=== PATIENT | male | born 1955 | race Caucasian/White ===

== ENCOUNTER 2021-03-29 20:30 | Inpatient (IN) ==
[2021-03-29] MEDS ORDERED: AZITHROMYCIN 500 MG in DEXTROSE 5% IN WATER 250 ML IV ONE (20:44)
[2021-03-29] MEDS ORDERED: cefTRIAXone 1 GM in DEXTROSE 5% IN WATER 50 ML IV SCH (20:45)
--- NOTE | 2021-03-29 20:46 | Emergency Department Note ---
HPI General Chief complaint: Shortness of Breath/Dyspnea Stated complaint: COVID+, SOB Time Seen by Provider: 03/29/21 20:33 Source: other Mode of arrival: ambulatory Limitations: no limitations History of Present Illness HPI Narrative: Narrative: Patient is a 65-year-old male presents with shortness of breath. The patient states that within the last month he was diagnosed with COVID. He states he is unvaccinated. Reviewing his chest x-ray interpretation per the radiologist is consistent with pneumonia. Patient denies any hemoptysis or lower extremity swelling. Related Data Home Medications Medication Instructions Recorded Confirmed No Known Home Meds 03/29/21 03/29/21 Allergies Allergy/AdvReac Type Severity Reaction Status Date / Time No Known Drug Allergies Allergy Unverified 03/24/21 10:00 Review of Systems ROS ROS Narrative: Narrative: All systems ED: reviewed and negative except as stated. [facility] Narrative Patient History Narrative: Narrative: Medical/Surgical/Family History All Active Problems (Updated 03/30/21 @ 01:25 by Justin Wadsworth DO) COVID-19 (Acute) Community acquired pneumonia (Acute) Acute respiratory distress syndrome (ARDS) (Acute) Social History Smoking Status: Never smoker Exam Narrative Narrative: Narrative: General Limitations: no limitations General appearance: Present alert Head Head: Present atraumatic and normocephalic Eye Eye: Present normal appearance, PERRL and EOMI ENT ENT: Present normal exam, normal oropharynx and mucous membranes moist Neck Neck: Present normal inspection, full ROM and trachea midline Chest Chest: Present normal inspection and symmetric chest wall rise Respiratory Respiratory: Present other (Mild tachypnea, mild use of accessory muscles, trachea midline, diffuse adventitious lung sounds in bilateral lung fernandez.) Cardiovascular Cardiovascular: Present normal rhythm and tachycardia Adbominal Abdominal: Present soft and normal bowel sounds; Absent tenderness, guarding, rebound or organomegaly Extremities Extremities: Present normal inspection and full ROM; Absent tenderness Back Back: Present normal inspection and full ROM; Absent tenderness Neurological Neurological: Present alert, oriented X3, CN II-XII intact, normal gait, motor sensory deficit and reflexes normal Psychiatric Psychiatric: Present normal affect Skin Skin: Present warm (WNL); Absent rash Course Course Course Narrative: History and exam are concerning for COVID-pneumonia as well as bacterial pneumonia. EKG shows no STEMI., Rate 97, KY interval 152, QRS 132, QTc 480, P waves are upright in leads I and II and 3 inverted in aVR no KY depression elevation only to aVR respectively, left axis deviation, right bundle branch block pattern, poor R wave progression, no acute see acute ST segment elevation depression, no shortened interval no biphasic T waves, no STEMI, nonspecific EKG. Chest x-ray is consistent with advanced bilateral pulmonary fluffy infiltrates consistent with ARDS. I consulted the hospitalist, dr. kinney for admission who recommended to transfer this patient to higher level of care. We have attempted to transfer this patient to multiple hospitals including [facility] however they are at max capacity. The patient will continue to board in the emergency department currently being treated with BiPAP. This patient will be signed out at shift change to Dr. Nii Cox. Vital Signs Vital signs: Vital Signs Temperature 99.8 F H 03/29/21 20:40 Pulse Rate 100 H 03/29/21 20:40 Respiratory Rate 24 H 03/29/21 20:40 Blood Pressure 152/109 03/29/21 20:40 Pulse Oximetry (%) 52 L 03/29/21 20:40 Temperature 99.8 F H 03/29/21 20:40 Pulse Rate 74 03/30/21 04:50 Respiratory Rate 26 H 03/30/21 04:50 Blood Pressure 135/81 03/30/21 01:02 Pulse Oximetry (%) 97 03/30/21 04:50 MDM MDM Narrative Medical decision making narrative: Narrative: Lab Data Result diagrams: 03/29/21 20:43 Labs: Lab Results 03/29/21 03/29/21 03/29/21 Range/Units 20:43 20:43 20:43 WBC 9.7 (4.5-11.0) K/mcL RBC 3.94 L (4.63-6.08) M/mcL Hgb 12.5 L (13.7-17.5) g/dL Hct 36.1 L (40.1-51.0) % POC Hct (41-55) % MCV 91.6 (80.0-100.0) fL MCH 31.7 (26.0-34.0) pg MCHC 34.6 (31.0-36.0) g/dL RDW 12.0 (11.5-14.5) % Plt Count 447 H (140-440) K/mcL MPV 9.1 (7.4-10.4) fL Neut % (Auto) 77.0 (38.0-78.0) % Lymph % (Auto) 10.4 L (15.5-49.0) % Hunt % (Auto) 11.4 (1.0-12.0) % Eos % (Auto) 1.0 (0.0-7.0) % Baso % (Auto) 0.2 (0.0-2.0) % Lymph # (Auto) 1.01 L (1.50-4.80) K/mcL Hunt # (Auto) 1.11 H (0.10-0.90) K/mcL Eos # (Auto) 0.10 (0.00-0.70) K/mcL Baso # (Auto) 0.02 (0.00-0.30) K/mcL Absolute Neutrophils 7.49 (1.80-8.00) K/mcL PT 16.0 H (11.9-14.5) sec INR 1.2 H (0.9-1.1) VBG Lactic Acid 1.6 (0.5-2.0) mmol/L POC Sodium (133-145) mEq/L POC Potassium (3.3-5.1) mEql/L POC Chloride (96-108) mEq/L POC Total CO2 (22-30) mmol/L POC BUN (6-20) mg/dL POC Creatinine (0.6-1.2) mg/dL POC Glucose (70-105) mg/dL POC WB Ioniz Calcium (1.16-1.32) mmEq/L Magnesium (1.6-2.5) mg/dL Total Bilirubin (0.1-1.0) mg/dL Direct Bilirubin (<0.3) mg/dL AST (<40) U/L ALT (<40) U/L Alkaline Phosphatase (39-117) U/L Total Creatine Kinase (24-195) U/L Troponin T (<0.03) ng/mL NT-Pro-B Natriuret Pep (<125.0) pg/mL Total Protein (5.9-8.4) gm/dL Albumin (3.2-5.2) gm/dL Globulin (2.2-3.7) gm/dL Lipase (7-60) U/L Procalcitonin (<0.10) ng/mL Ethyl Alcohol (<0.010) gm/dL 03/29/21 03/29/21 03/29/21 Range/Units 20:43 20:43 20:43 WBC (4.5-11.0) K/mcL RBC (4.63-6.08) M/mcL Hgb (13.7-17.5) g/dL Hct (40.1-51.0) % POC Hct 36 L (41-55) % MCV (80.0-100.0) fL MCH (26.0-34.0) pg MCHC (31.0-36.0) g/dL RDW (11.5-14.5) % Plt Count (140-440) K/mcL MPV (7.4-10.4) fL Neut % (Auto) (38.0-78.0) % Lymph % (Auto) (15.5-49.0) % Hunt % (Auto) (1.0-12.0) % Eos % (Auto) (0.0-7.0) % Baso % (Auto) (0.0-2.0) % Lymph # (Auto) (1.50-4.80) K/mcL Hunt # (Auto) (0.10-0.90) K/mcL Eos # (Auto) (0.00-0.70) K/mcL Baso # (Auto) (0.00-0.30) K/mcL Absolute Neutrophils (1.80-8.00) K/mcL PT (11.9-14.5) sec INR (0.9-1.1) VBG Lactic Acid (0.5-2.0) mmol/L POC Sodium 132 L (133-145) mEq/L POC Potassium 3.3 (3.3-5.1) mEql/L POC Chloride 97 (96-108) mEq/L POC Total CO2 24 (22-30) mmol/L POC BUN 9 (6-20) mg/dL POC Creatinine 0.6 (0.6-1.2) mg/dL POC Glucose 135 H (70-105) mg/dL POC WB Ioniz Calcium 1.05 L (1.16-1.32) mmEq/L Magnesium 2.6 H (1.6-2.5) mg/dL Total Bilirubin 0.9 (0.1-1.0) mg/dL Direct Bilirubin 0.3 H (<0.3) mg/dL AST 72 H (<40) U/L ALT 131 H (<40) U/L Alkaline Phosphatase 126 H (39-117) U/L Total Creatine Kinase 39 (24-195) U/L Troponin T < 0.01 (<0.03) ng/mL NT-Pro-B Natriuret Pep 98.2 (<125.0) pg/mL Total Protein 7.6 (5.9-8.4) gm/dL Albumin 3.0 L (3.2-5.2) gm/dL Globulin 4.6 H (2.2-3.7) gm/dL Lipase 15 (7-60) U/L Procalcitonin 0.14 H (<0.10) ng/mL Ethyl Alcohol (<0.010) gm/dL 03/29/21 Range/Units 20:43 WBC (4.5-11.0) K/mcL RBC (4.63-6.08) M/mcL Hgb (13.7-17.5) g/dL Hct (40.1-51.0) % POC Hct (41-55) % MCV (80.0-100.0) fL MCH (26.0-34.0) pg MCHC (31.0-36.0) g/dL RDW (11.5-14.5) % Plt Count (140-440) K/mcL MPV (7.4-10.4) fL Neut % (Auto) (38.0-78.0) % Lymph % (Auto) (15.5-49.0) % Hunt % (Auto) (1.0-12.0) % Eos % (Auto) (0.0-7.0) % Baso % (Auto) (0.0-2.0) % Lymph # (Auto) (1.50-4.80) K/mcL Hunt # (Auto) (0.10-0.90) K/mcL Eos # (Auto) (0.00-0.70) K/mcL Baso # (Auto) (0.00-0.30) K/mcL Absolute Neutrophils (1.80-8.00) K/mcL PT (11.9-14.5) sec INR (0.9-1.1) VBG Lactic Acid (0.5-2.0) mmol/L POC Sodium (133-145) mEq/L POC Potassium (3.3-5.1) mEql/L POC Chloride (96-108) mEq/L POC Total CO2 (22-30) mmol/L POC BUN (6-20) mg/dL POC Creatinine (0.6-1.2) mg/dL POC Glucose (70-105) mg/dL POC WB Ioniz Calcium (1.16-1.32) mmEq/L Magnesium (1.6-2.5) mg/dL Total Bilirubin (0.1-1.0) mg/dL Direct Bilirubin (<0.3) mg/dL AST (<40) U/L ALT (<40) U/L Alkaline Phosphatase (39-117) U/L Total Creatine Kinase (24-195) U/L Troponin T (<0.03) ng/mL NT-Pro-B Natriuret Pep (<125.0) pg/mL Total Protein (5.9-8.4) gm/dL Albumin (3.2-5.2) gm/dL Globulin (2.2-3.7) gm/dL Lipase (7-60) U/L Procalcitonin (<0.10) ng/mL Ethyl Alcohol < 0.010 (<0.010) gm/dL ED POC Tests ED POC Tests: TONE - SARS Antigen Negative Discharge Plan Patient/Caregiver Discharge Instructions Pt seen by CROSS COUNTRY TRUCK DRIVER/PA only: No Clinical Impression: COVID-19, Community acquired pneumonia, Acute respiratory distress syndrome (ARDS) Patient Disposition: Still a Patient Condition: Serious Follow up with: Taylor Aquino MD [Primary Care Provider] - Prescriptions: No Action No Known Home Meds 0RF
[2021-03-29 21:12] LABS: POC Blood Urea Nitrogen 9 mg/dL (6-20); POC CO2 24 mmol/L (22-30); POC Calcium, Ionized 1.05 mmEq/L (1.16-1.32); POC Chloride 97 mEq/L (96-108); POC Creatinine 0.6 mg/dL (0.6-1.2); POC Glucose, Random 135 mg/dL (70-105); POC Hematocrit 36 % (41-55); POC Potassium 3.3 mEql/L (3.3-5.1); POC Sodium 132 mEq/L (133-145)
[2021-03-29] MEDS ORDERED: LORazepam 2 MG/ML VIAL IV ONE (21:24)
[2021-03-29 21:45] LABS: INR 1.2 (0.9-1.1)
[2021-03-29 21:47] LABS: Basophils # (Auto) 0.02 K/mcL (0.00-0.30); Basophils % (Auto) 0.2 % (0.0-2.0); Hematocrit 36.1 % (40.1-51.0); Hemoglobin 12.5 g/dL (13.7-17.5); Lymphocytes # (Auto) 1.01 K/mcL (1.50-4.80); Lymphocytes % (Auto) 10.4 % (15.5-49.0); Mean Cell Volume 91.6 fL (80.0-100.0); Mean Corpuscular HGB Conc 34.6 g/dL (31.0-36.0); Mean Platelet Volume 9.1 fL (7.4-10.4); Monocytes # (Auto) 1.11 K/mcL (0.10-0.90); Monocytes % (Auto) 11.4 % (1.0-12.0); Platelet Count 447 K/mcL (140-440); RBC 3.94 M/mcL (4.63-6.08); WBC 9.7 K/mcL (4.5-11.0)
[2021-03-29 22:03] LABS: proBNP 98.2 pg/mL (<125.0)
[2021-03-29 22:06] LABS: ALT/SGPT 131 U/L (<40); AST/SGOT 72 U/L (<40); Alkaline Phosphatase 126 U/L (39-117); Bilirubin,Direct 0.3 mg/dL (<0.3); Bilirubin,Total 0.9 mg/dL (0.1-1.0); Creatine Kinase 39 U/L (24-195); Globulin 4.6 gm/dL (2.2-3.7)
[2021-03-29 22:17] LABS: Alcohol, Blood < 10.0 mg/dL; Alcohol,Blood < 0.010 gm/dL (<0.010)
--- NOTE | 2021-03-30 04:06 | XRay Report ---
CLINICAL INFORMATION: Dyspnea COMPARISON: 03/24/2021 TECHNIQUE: Portable FINDINGS: The heart size, mediastinum and pulmonary vessels are unremarkable. Diffuse bilateral infiltrates worsening considerably since the exam five days ago.. There are no effusions. The bones and soft tissues are within normal limits. IMPRESSION: Diffuse bilateral alveolar infiltrates throughout both lungs-worsening considerably since the exam less than one week ago Interpreted and Authenticated by: Raul Ro 03/30/21
--- NOTE | 2021-03-30 07:57 | Emergency Department Note ---
Course Course Course Narrative: I assumed care from Dr. Espinal at the change of shift. I evaluated the patient in person at 7:55 AM. He is sitting up in bed on high flow oxygen via nasal cannula in no acute distress. He is able to carry conversation but does have slightly increased work of breathing after prolonged conversation. He says he feels much better this morning. We will continue to search for an appropriate inpatient bed. Vital Signs Vital signs: Vital Signs Temperature 99.8 F H 03/29/21 20:40 Pulse Rate 100 H 03/29/21 20:40 Respiratory Rate 24 H 03/29/21 20:40 Blood Pressure 152/109 03/29/21 20:40 Pulse Oximetry (%) 52 L 03/29/21 20:40 Temperature 99.8 F H 03/29/21 20:40 Pulse Rate 97 H 03/30/21 16:53 Respiratory Rate 27 H 03/30/21 16:53 Blood Pressure 123/83 03/30/21 16:53 Pulse Oximetry (%) 98 03/30/21 16:53 [facility] MDM Narrative Medical decision making narrative: After several hours of searching for an appropriate bed for transfer, a bed at our facility became available. I discussed the patient's history examination and diagnostic findings with Dr. Rudd. He accepts admission and will provide care in the hospital. I updated the patient who is quite happy that he does not need to be transferred at this time and is agreeable with the plan for admission. Lab Data Result diagrams: 03/29/21 20:43 Labs: Lab Results 03/29/21 03/29/21 03/29/21 Range/Units 20:43 20:43 20:43 WBC 9.7 (4.5-11.0) K/mcL RBC 3.94 L (4.63-6.08) M/mcL Hgb 12.5 L (13.7-17.5) g/dL Hct 36.1 L (40.1-51.0) % POC Hct (41-55) % MCV 91.6 (80.0-100.0) fL MCH 31.7 (26.0-34.0) pg MCHC 34.6 (31.0-36.0) g/dL RDW 12.0 (11.5-14.5) % Plt Count 447 H (140-440) K/mcL MPV 9.1 (7.4-10.4) fL Neut % (Auto) 77.0 (38.0-78.0) % Lymph % (Auto) 10.4 L (15.5-49.0) % [place]ades % (Auto) 11.4 (1.0-12.0) % Eos % (Auto) 1.0 (0.0-7.0) % Baso % (Auto) 0.2 (0.0-2.0) % Lymph # (Auto) 1.01 L (1.50-4.80) K/mcL [place] # (Auto) 1.11 H (0.10-0.90) K/mcL Eos # (Auto) 0.10 (0.00-0.70) K/mcL Baso # (Auto) 0.02 (0.00-0.30) K/mcL Absolute Neutrophils 7.49 (1.80-8.00) K/mcL PT 16.0 H (11.9-14.5) sec INR 1.2 H (0.9-1.1) VBG Lactic Acid 1.6 (0.5-2.0) mmol/L POC Sodium (133-145) mEq/L POC Potassium (3.3-5.1) mEql/L POC Chloride (96-108) mEq/L POC Total CO2 (22-30) mmol/L POC BUN (6-20) mg/dL POC Creatinine (0.6-1.2) mg/dL POC Glucose (70-105) mg/dL POC WB Ioniz Calcium (1.16-1.32) mmEq/L Magnesium (1.6-2.5) mg/dL Total Bilirubin (0.1-1.0) mg/dL Direct Bilirubin (<0.3) mg/dL AST (<40) U/L ALT (<40) U/L Alkaline Phosphatase (39-117) U/L Total Creatine Kinase (24-195) U/L Troponin T (<0.03) ng/mL NT-Pro-B Natriuret Pep (<125.0) pg/mL Total Protein (5.9-8.4) gm/dL Albumin (3.2-5.2) gm/dL Globulin (2.2-3.7) gm/dL Lipase (7-60) U/L Procalcitonin (<0.10) ng/mL Ethyl Alcohol (<0.010) gm/dL 03/29/21 03/29/21 03/29/21 Range/Units 20:43 20:43 20:43 WBC (4.5-11.0) K/mcL RBC (4.63-6.08) M/mcL Hgb (13.7-17.5) g/dL Hct (40.1-51.0) % POC Hct 36 L (41-55) % MCV (80.0-100.0) fL MCH (26.0-34.0) pg MCHC (31.0-36.0) g/dL RDW (11.5-14.5) % Plt Count (140-440) K/mcL MPV (7.4-10.4) fL Neut % (Auto) (38.0-78.0) % Lymph % (Auto) (15.5-49.0) % [place] % (Auto) (1.0-12.0) % Eos % (Auto) (0.0-7.0) % Baso % (Auto) (0.0-2.0) % Lymph # (Auto) (1.50-4.80) K/mcL [place] # (Auto) (0.10-0.90) K/mcL Eos # (Auto) (0.00-0.70) K/mcL Baso # (Auto) (0.00-0.30) K/mcL Absolute Neutrophils (1.80-8.00) K/mcL PT (11.9-14.5) sec INR (0.9-1.1) VBG Lactic Acid (0.5-2.0) mmol/L POC Sodium 132 L (133-145) mEq/L POC Potassium 3.3 (3.3-5.1) mEql/L POC Chloride 97 (96-108) mEq/L POC Total CO2 24 (22-30) mmol/L POC BUN 9 (6-20) mg/dL POC Creatinine 0.6 (0.6-1.2) mg/dL POC Glucose 135 H (70-105) mg/dL POC WB Ioniz Calcium 1.05 L (1.16-1.32) mmEq/L Magnesium 2.6 H (1.6-2.5) mg/dL Total Bilirubin 0.9 (0.1-1.0) mg/dL Direct Bilirubin 0.3 H (<0.3) mg/dL AST 72 H (<40) U/L ALT 131 H (<40) U/L Alkaline Phosphatase 126 H (39-117) U/L Total Creatine Kinase 39 (24-195) U/L Troponin T < 0.01 (<0.03) ng/mL NT-Pro-B Natriuret Pep 98.2 (<125.0) pg/mL Total Protein 7.6 (5.9-8.4) gm/dL Albumin 3.0 L (3.2-5.2) gm/dL Globulin 4.6 H (2.2-3.7) gm/dL Lipase 15 (7-60) U/L Procalcitonin 0.14 H (<0.10) ng/mL Ethyl Alcohol (<0.010) gm/dL 03/29/21 Range/Units 20:43 WBC (4.5-11.0) K/mcL RBC (4.63-6.08) M/mcL Hgb (13.7-17.5) g/dL Hct (40.1-51.0) % POC Hct (41-55) % MCV (80.0-100.0) fL MCH (26.0-34.0) pg MCHC (31.0-36.0) g/dL RDW (11.5-14.5) % Plt Count (140-440) K/mcL MPV (7.4-10.4) fL Neut % (Auto) (38.0-78.0) % Lymph % (Auto) (15.5-49.0) % [place] % (Auto) (1.0-12.0) % Eos % (Auto) (0.0-7.0) % Baso % (Auto) (0.0-2.0) % Lymph # (Auto) (1.50-4.80) K/mcL [place] # (Auto) (0.10-0.90) K/mcL Eos # (Auto) (0.00-0.70) K/mcL Baso # (Auto) (0.00-0.30) K/mcL Absolute Neutrophils (1.80-8.00) K/mcL PT (11.9-14.5) sec INR (0.9-1.1) VBG Lactic Acid (0.5-2.0) mmol/L POC Sodium (133-145) mEq/L POC Potassium (3.3-5.1) mEql/L POC Chloride (96-108) mEq/L POC Total CO2 (22-30) mmol/L POC BUN (6-20) mg/dL POC Creatinine (0.6-1.2) mg/dL POC Glucose (70-105) mg/dL POC WB Ioniz Calcium (1.16-1.32) mmEq/L Magnesium (1.6-2.5) mg/dL Total Bilirubin (0.1-1.0) mg/dL Direct Bilirubin (<0.3) mg/dL AST (<40) U/L ALT (<40) U/L Alkaline Phosphatase (39-117) U/L Total Creatine Kinase (24-195) U/L Troponin T (<0.03) ng/mL NT-Pro-B Natriuret Pep (<125.0) pg/mL Total Protein (5.9-8.4) gm/dL Albumin (3.2-5.2) gm/dL Globulin (2.2-3.7) gm/dL Lipase (7-60) U/L Procalcitonin (<0.10) ng/mL Ethyl Alcohol < 0.010 (<0.010) gm/dL ED POC Tests ED POC Tests: TONE - SARS Antigen Negative Discharge Plan Patient/Caregiver Discharge Instructions Pt seen by GARBAGE TRUCK DISPATCHER/PA only: No Clinical Impression: COVID-19, Acute hypoxemic respiratory failure Patient Disposition: Xfer As Inpt ([facility] [place]) Condition: Serious Follow up with: Taylor Aquino MD [Primary Care Provider] - Prescriptions: No Action No Known Home Meds 0RF
[2021-03-30] MEDS ORDERED: HEPARIN 5,000 UNIT/ML VIAL SQ SCH (09:00)
[2021-03-30] MEDS ORDERED: DEXAMETHASONE 4 MG TABLET PO SCH (09:00)
[2021-03-30] MEDS: LACTATED RINGERS 1,000 ML IV SCH ×3 (09:00→17:18)
--- NOTE | 2021-03-30 15:01 | Internal Med History&Physical ---
HPI History of Present Illness Patient information: Note initiated : 03/30/21 at 2:58 pm Service Date, if different from initiated Date: [] Patient: Edward Holt 65 y/o M admitted on for COVID+, SOB. Chief Complaint: [] History of present illness: Edward Holt is a 65-year-old male with obesity, BMI 31, who was diagnosed with COVID-19 on about 03/16/2021 who presents to the emergency department with a chief complaint of shortness of breath. The patient presented to the emergency department on dyspnea, found to be hypoxic and discharged to home on supplemental oxygen. His symptoms worsened and he presented to the emergency department where he was found to be hypoxic and initially placed on BiPAP then transition to heated and humidified high flow nasal cannula oxygen. Transfer to a higher level of care for severe hypoxic respiratory failure secondary to COVID was attempted. A bed was found in [facility] however the patient refused transfer. Hospital medicine was asked to admit the patient in light of difficulty transferring the patient to higher level of care. Work-up in the ED included CBC, complete metabolic panel, this shows a normocytic anemia with a hemoglobin of 12.5, platelet of 447, sodium 132, mildly elevated LFTs. The patient a procalcitonin level of 0.14. Chest x-ray showed diffuse bilateral alveolar infiltrates throughout both lung fernandez considerably more pronounced since the last chest x-ray on 03/24/2021. In the ED, the patient received dexamethasone 6 mg p.o., a dose of ceftriaxone and azithromycin. Review of systems Constitutional: Positive for fatigue, no chills or fevers Eyes: no vision changes or pain Cardiovascular: no chest pain, no palpitations Respiratory: Positive for dyspnea, occasional nonproductive cough Gastrointestinal: no abdominal pain, no nausea, vomiting, or diarrhea Genitourinary: no dysuria or difficulty voiding Musculoskeletal: no arthralgia or myalgia Integumentary: no skin lesion or wound Neurological: no focal weakness or numbness Psychiatric: no anxiety or depression Physical exam Head: Atraumatic, normal inspection. Eyes: normal appearance, no scleral icterus. Neck: full ROM Respiratory: Respiratory rate in the 20s to 30s, on HHFNC FiO2 100. Cardiovascular: normal rate and rhythm, S1, S2. GI/Abdominal: Obesely distended, soft, nontender, no guarding. Extremities: full range of motion, nontender. Neurological: CN II-XII intact, intact motor, intact sensation. Psychiatric: normal mood. Skin: warm, normal color PFSH PFSH All Active Problems (Updated 03/30/21 @ 01:25 by Justin Wadsworth DO) COVID-19 (Acute) Community acquired pneumonia (Acute) Acute respiratory distress syndrome (ARDS) (Acute) MEDS/ALLERGIES Home Medications and Allergies Home Medications Medication Instructions Recorded Confirmed Type No Known Home Meds 03/29/21 03/29/21 History Allergies Allergy/AdvReac Type Severity Reaction Status Date / Time No Known Drug Allergies Allergy Unverified 03/24/21 10:00 EXAM Constitutional Vitals: Temp Pulse Resp BP Pulse Ox 99.8 F H 78 28 H 113/80 98 03/29/21 20:40 03/30/21 14:00 03/30/21 14:00 03/30/21 14:00 03/30/21 14:00 DATA Data Completed and Pending Labs: Labs from last 24 hours 03/29/21 03/29/21 03/29/21 20:43 20:43 20:43 WBC RBC Hgb Hct POC Hct MCV MCH MCHC RDW Plt Count MPV Neut % (Auto) Lymph % (Auto) [place] % (Auto) Eos % (Auto) Baso % (Auto) Lymph # (Auto) [place] # (Auto) Eos # (Auto) Baso # (Auto) Absolute Neutrophils PT INR VBG Lactic Acid POC Sodium POC Potassium POC Chloride POC Total CO2 POC BUN POC Creatinine POC Glucose POC WB Ioniz Calcium Magnesium Total Bilirubin Direct Bilirubin AST ALT Alkaline Phosphatase Total Creatine Kinase Troponin T < 0.01 NT-Pro-B Natriuret Pep Total Protein Albumin Globulin Lipase Procalcitonin 0.14 H Ethyl Alcohol < 0.010 03/29/21 03/29/21 03/29/21 20:43 20:43 20:43 WBC RBC Hgb Hct POC Hct 36 L MCV MCH MCHC RDW Plt Count MPV Neut % (Auto) Lymph % (Auto) [place] % (Auto) Eos % (Auto) Baso % (Auto) Lymph # (Auto) [place] # (Auto) Eos # (Auto) Baso # (Auto) Absolute Neutrophils PT 16.0 H INR 1.2 H VBG Lactic Acid 1.6 POC Sodium 132 L POC Potassium 3.3 POC Chloride 97 POC Total CO2 24 POC BUN 9 POC Creatinine 0.6 POC Glucose 135 H POC WB Ioniz Calcium 1.05 L Magnesium 2.6 H Total Bilirubin 0.9 Direct Bilirubin 0.3 H AST 72 H ALT 131 H Alkaline Phosphatase 126 H Total Creatine Kinase 39 Troponin T NT-Pro-B Natriuret Pep 98.2 Total Protein 7.6 Albumin 3.0 L Globulin 4.6 H Lipase 15 Procalcitonin Ethyl Alcohol 03/29/21 20:43 WBC 9.7 RBC 3.94 L Hgb 12.5 L Hct 36.1 L POC Hct MCV 91.6 MCH 31.7 MCHC 34.6 RDW 12.0 Plt Count 447 H MPV 9.1 Neut % (Auto) 77.0 Lymph % (Auto) 10.4 L [place] % (Auto) 11.4 Eos % (Auto) 1.0 Baso % (Auto) 0.2 Lymph # (Auto) 1.01 L [place] # (Auto) 1.11 H Eos # (Auto) 0.10 Baso # (Auto) 0.02 Absolute Neutrophils 7.49 PT INR VBG Lactic Acid POC Sodium POC Potassium POC Chloride POC Total CO2 POC BUN POC Creatinine POC Glucose POC WB Ioniz Calcium Magnesium Total Bilirubin Direct Bilirubin AST ALT Alkaline Phosphatase Total Creatine Kinase Troponin T NT-Pro-B Natriuret Pep Total Protein Albumin Globulin Lipase Procalcitonin Ethyl Alcohol A/P Narrative A/P Narrative: Assessment: 65 year old obese male admitted for acute hypoxic respiratory failure secondary to ARDS due to COVID-19 pneumonia. The patient reports being diagnosed with COVID a few days after Mylene, he began to develop respiratory symptoms in early March. The patient has not been vaccinated for COVID. #Acute hypoxic respiratory failure #Severe COVID pneumonia/ARDS #Hyponatremia #Thrombocytosis #Normocytic anemia #Mildly elevated LFTs likely secondary to COVID illness #Obesity BMI 31 Plan -Dexamethasone 6 mg IV daily for severe COVID. -Consider Tocilizumab, if unavailable then Baricitinib if CRP marketly elevated. -Unlikely to benefit from Remdesivir at this phase in COVID illness. -Oxygen supplementation. -Proning as able. -D-dimer, if elevated consider CT PE chest. -CRP. -Daily CBC, CMP, CRP. -PANTHER PCR. -Monitor respiratory status closely. -Regular diet. -DVT prophylaxis: Lovenox SQ -Code status: Full -Disposition: Home when stable. Time Spent With Patient Time: Total time spent is greater than 50% in coordination of care (as documented) at patient's floor/unit and/or counseling patient:
[2021-03-30 18:08] LABS: Appearance,Urine Clear (Clear); Bilirubin,Urine Negative (Negative); Color,Urine Yellow; Culture Indicated,Urine No; Glucose,Urine (UA) Negative (Negative); Ketones,Urine Negative (Negative); Leukocyte Esterase,Urine Negative /uL (Negative); Nitrate,Urine Negative (Negative); Protein,Urine Negative (Negative); Urine Blood Trace-intact ery/mcL (Negative); Urine RBC 0 /hpf (0-3); Urine Squamous Epithelial Cell < 1 /hpf (0-4); Urine WBC 1 /hpf (0-4); Urobilinogen,Urine Normal
[2021-03-30 18:34] LABS: Amphetamine Screen,Urine None detected; Barbiturate Screen,Urine None detected; Benzodiazepines Screen,Urine None detected; Cannabinoid Screen,Urine None detected; Cocaine Screen,Urine None detected; Opiate Screen,Urine None detected; Oxycodone, Urine Screen None detected; Phencyclidine Screen,Urine None detected
[2021-03-30] MEDS ORDERED: SENNOSIDES 1 TABLET PO PRN (19:18)
[2021-03-30] MEDS ORDERED: ONDANSETRON 4 MG/2 ML VIAL IV PRN (19:18)
[2021-03-30] MEDS ORDERED: LACTULOSE 20 GM/30 ML ORAL.SOL PO PRN (19:18)
[2021-03-30] MEDS ORDERED: ACETAMINOPHEN 325 MG TABLET PO PRN (19:18)
--- NOTE | 2021-03-30 21:03 | EKG ---
[facility] Test Date: 2021-03-29 Pat Name: Edward Holt Department: ED Room: Gender: Male Gis Database Administrator: [id number] : [id number] Requested By: Justin Wadsworth Order Number: [id number] Reading MD: Andres Madrigal Measurements Intervals Rhodelia Rate: 97 P: 35 AR: 152 QRS: -29 QRSD: 132 T: 24 QT: 378 QTc: 480 Interpretive Statements Sinus rhythm Right bundle branch block Electronically Signed On 03-30-2021 21:02:56 PST by Andres Madrigal /store/[email or web address]/[id number]/[id number]
[2021-03-30 21:23] LABS: ALT/SGPT 159 U/L (<40); AST/SGOT 112 U/L (<40); Albumin 3.1 gm/dL (3.2-5.2); Albumin/Globulin Ratio 0.7 (1.0-2.3); Alkaline Phosphatase 143 U/L (39-117); Bilirubin,Direct 0.2 mg/dL (<0.3); Bilirubin,Total 0.6 mg/dL (0.1-1.0); Blood Urea Nitrogen 12 mg/dL (8-23); Calcium 8.4 mg/dL (8.6-10.4); Carbon Dioxide 22 mmol/L (22-30); Chloride 96 mmol/L (96-108); Globulin 4.2 gm/dL (2.2-3.7); Glomerular Filtration Rate 100; Glucose 216 mg/dL (70-105); Lactate Dehydrogenase 404 U/L (135-225); Phosphorous 1.6 mg/dL (2.5-4.5); Triglycerides 168 mg/dL (<150); Uric Acid 3.9 mg/dL (2.5-8.0)
[2021-03-31] MEDS: 0.9 % SODIUM CHLORIDE 10 ML SYRINGE IV SCH ×4 (00:10→20:46)
[2021-03-31 06:45] LABS: Hematocrit 31.9 % (40.1-51.0); Hemoglobin 10.9 g/dL (13.7-17.5); Mean Cell Volume 92.2 fL (80.0-100.0); Mean Corpuscular HGB Conc 34.2 g/dL (31.0-36.0); Mean Platelet Volume 9.3 fL (7.4-10.4); Platelet Count 527 K/mcL (140-440); RBC 3.46 M/mcL (4.63-6.08); Red Cell Distribution Width 11.9 % (11.5-14.5); WBC 9.7 K/mcL (4.5-11.0)
[2021-03-31 07:14] LABS: ALT/SGPT 150 U/L (<40); AST/SGOT 81 U/L (<40); Albumin/Globulin Ratio 0.9 (1.0-2.3); Alkaline Phosphatase 133 U/L (39-117); Bilirubin,Direct 0.2 mg/dL (<0.3); Bilirubin,Total 0.7 mg/dL (0.1-1.0); Blood Urea Nitrogen 12 mg/dL (8-23); Calcium 8.2 mg/dL (8.6-10.4); Carbon Dioxide 23 mmol/L (22-30); Chloride 100 mmol/L (96-108); Globulin 3.4 gm/dL (2.2-3.7); Glomerular Filtration Rate 115; Glucose 133 mg/dL (70-105); Lactate Dehydrogenase 376 U/L (135-225); Phosphorous 3.3 mg/dL (2.5-4.5); Triglycerides 123 mg/dL (<150); Uric Acid 3.9 mg/dL (2.5-8.0)
[2021-03-31 07:37] LABS: Band Neutrophils % 7 % (0-10); Lymphocytes % 6 % (15-49); Monocytes % (Manual) 6 % (1-12); Platelet Estimate INCREASED (Normal); RBC Morphology NORMAL (Normal); Reactive Lymphocytes 3 % (0-2); Segmented Neutrophils % 78 % (38-78)
[2021-03-31] MEDS: DEXAMETHASONE 10 MG/ML VIAL IV SCH (08:26)
[2021-03-31] MEDS ORDERED: ENOXAPARIN 40 MG/0.4 ML SYRINGE SQ SCH ×2 (09:00→14:05)
[2021-03-31] MEDS ORDERED: IOPAMIDOL 100 ML BOTTLE IV ONE (12:13)
--- NOTE | 2021-03-31 12:35 | Cat Scan Report ---
CLINICAL INFORMATION: Elevated d-dimer. Evaluate for pulmonary embolus. COMPARISON: None. TECHNIQUE: 80ml of Isovue-370 were injected intravenously. Using SmartPrep to maximize pulmonary artery opacification, .625mm helical slices were obtained from the lung apices through the lung bases. Following reconstruction, 2.5 mm sagittal, coronal, and axial reformations were processed. The exam was reviewed at mediastinal, lung, and bone windows. The exam was performed using radiation dose optimization techniques including, but not limited to, automated exposure control, adjustment of the mA and/or kV according to patient size and use of iterative reconstruction technique. FINDINGS: Pulmonary parenchymal windows patchy alveolar infiltrates scattered throughout both upper, right middle and lower lobes. Pleural spaces are unremarkable-no effusions. Mediastinal windows show the heart is grossly normal in size and configuration. The pulmonary arteries are normal diameter with scattered emboli within the posterior and lateral basilar branches of the lower lobe pulmonary arteries. The thoracic aorta is also normal diameter and well-opacified. Mildly enlarged lymph nodes in the lower mediastinum ranging up to 14 mm in the precarinal region. These likely represent benign reactive adenopathy related to traction. Esophagus is grossly normal. The thyroid is unremarkable. Bones and soft tissues the chest wall are normal. Images through the superior abdomen are unremarkable. IMPRESSION: 1. Segmental emboli within the posterior basilar, lateral basilar and anterior basilar segmental branches of both lower lobe pulmonary arteries. Central pulmonary arteries are normal diameter-no evidence of pulmonary hypertension related to embolic load. 2. Patchy infiltrates throughout both lungs. Reactive adenopathy in the lower mediastinum-as expected Interpreted and Authenticated by: Raul Ro 03/31/21
[2021-03-31] MEDS ORDERED: ENOXAPARIN 60 MG/0.6 ML SYRINGE SQ ONE (14:30)
--- NOTE | 2021-03-31 19:11 | Internal Med Progress Note ---
SUBJECTIVE Subjective Patient information: Note initiated : 03/31/21 at 7:07 pm Service Date, if different from initiated Date: [] Patient: Edward Holt 65 y/o M admitted on 03/30/21 for COVID+, SOB. Chief Complaint: [] Interval history: Edward Holt is a 65-year-old male with obesity, BMI 31, who was diagnosed with COVID-19 on about 03/16/2021 who presents to the emergency department with a chief complaint of shortness of breath. The patient presented to the emergency department on dyspnea, found to be hypoxic and discharged to home on supplemental oxygen. His symptoms worsened and he presented to the emergency department where he was found to be hypoxic and initially placed on BiPAP then transition to heated and humidified high flow nasal cannula oxygen. Transfer to a higher level of care for severe hypoxic respiratory failure secondary to COVID was attempted. A bed was found in [facility] however the patient refused transfer. Hospital medicine was asked to admit the patient in light of difficulty transferring the patient to higher level of care. Work-up in the ED included CBC, complete metabolic panel, this shows a normocytic anemia with a hemoglobin of 12.5, platelet of 447, sodium 132, mildly elevated LFTs. The patient a procalcitonin level of 0.14. Chest x-ray showed diffuse bilateral alveolar infiltrates throughout both lung fernandez considerably more pronounced since the last chest x-ray on 03/24/2021. In the ED, the patient received dexamethasone 6 mg p.o., a dose of ceftriaxone and azithromycin. 03/31 Elevated d-dimer, CTA chest showed bilateral pulmonary embolic. Started therapeutic lovenox BID. Improving oxygen requirement. Physical exam Head: Atraumatic, normal inspection. Eyes: normal appearance, no scleral icterus. Neck: full ROM Respiratory: Respiratory rate in the 20s to 30s, on HHFNC FiO2 100. Cardiovascular: normal rate and rhythm, S1, S2. GI/Abdominal: Obesely distended, soft, nontender, no guarding. Extremities: full range of motion, nontender. Neurological: CN II-XII intact, intact motor, intact sensation. Psychiatric: normal mood. Skin: warm, normal color Constitutional Vitals: Vital Signs Temp Pulse Resp BP Pulse Ox 97.8 F 82 25 H 122/88 96 03/31/21 16:01 03/31/21 18:09 03/31/21 18:09 03/31/21 18:00 03/31/21 18:09 Period Temp Pulse Resp BP Sys/Francis Pulse Ox Last 24 Hr 97.0 F-98.7 F 59-93 1027 106-151/80-109 90-100 Intake and Output 03/31/21 03/31/21 03/31/21 05:59 13:59 21:59 Intake Total 200 480 360 Output Total 250 325 625 Balance -50 155 -265 Weight 97.522 kg Patient Weight 04/01/21 05:59 Weight 97.522 kg Intake & Output: Intake & Output 03/31/21 03/31/21 03/31/21 05:59 13:59 21:59 Intake Total 200 480 360 Output Total 250 325 625 Balance -50 155 -265 Weight 97.522 kg Intake: Oral 200 480 360 Output: Void Amount 250 325 625 Other: Meal Breakfast Lunch Percent of Meal Consumed 100% 100% Feeding Ability Independent Independent Urine Appearance Clear Clear Clear Urine Color Light Gayathri Light Gayathri Light Gayathri Urine Odor Normal Normal Stool Size Large Stool Color Brown Stool Consistency Soft # Bowel Movements 1 # of times incontinent of 0 Bowels OBJ DATA Labs CBC & Chem 7: 03/31/21 05:38 03/31/21 05:40 Labs: Abnormal Lab Results 03/31/21 03/31/21 03/30/21 05:40 05:38 19:38 RBC 3.46 L Hgb 10.9 L Hct 31.9 L POC Hct Plt Count 527 H Lymph % (Auto) Lymph # (Auto) Burke # (Auto) Lymphocytes % 6 L Reactive Lymphocytes 3 H Platelet Estimate Increased A PT INR D-Dimer POC Sodium Sodium 132 L Creatinine 0.5 L Glucose 133 H 216 H POC Glucose Calcium 8.2 L 8.4 L POC WB Ioniz Calcium Phosphorus 1.6 L Magnesium 2.7 H 2.7 H Direct Bilirubin GGT 207 H 214 H AST 81 H 112 H ALT 150 H 159 H Alkaline Phosphatase 133 H 143 H Lactate Dehydrogenase 376 H 404 H C-Reactive Protein 13.80 H Albumin 3.0 L 3.1 L Globulin 4.2 H Albumin/Globulin Ratio 0.9 L 0.7 L Triglycerides 168 H Procalcitonin Urine Occult Blood 03/30/21 03/30/21 03/29/21 19:38 17:02 20:43 RBC Hgb Hct POC Hct Plt Count Lymph % (Auto) Lymph # (Auto) Burke # (Auto) Lymphocytes % Reactive Lymphocytes Platelet Estimate PT INR D-Dimer > 20.0 H POC Sodium Sodium Creatinine Glucose POC Glucose Calcium POC WB Ioniz Calcium Phosphorus Magnesium Direct Bilirubin GGT AST ALT Alkaline Phosphatase Lactate Dehydrogenase C-Reactive Protein Albumin Globulin Albumin/Globulin Ratio Triglycerides Procalcitonin 0.14 H Urine Occult Blood Trace-intact A 03/29/21 03/29/21 03/29/21 20:43 20:43 20:43 RBC 3.94 L Hgb 12.5 L Hct 36.1 L POC Hct 36 L Plt Count 447 H Lymph % (Auto) 10.4 L Lymph # (Auto) 1.01 L Burke # (Auto) 1.11 H Lymphocytes % Reactive Lymphocytes Platelet Estimate PT 16.0 H INR 1.2 H D-Dimer POC Sodium 132 L Sodium Creatinine Glucose POC Glucose 135 H Calcium POC WB Ioniz Calcium 1.05 L Phosphorus Magnesium 2.6 H Direct Bilirubin 0.3 H GGT AST 72 H ALT 131 H Alkaline Phosphatase 126 H Lactate Dehydrogenase C-Reactive Protein Albumin 3.0 L Globulin 4.6 H Albumin/Globulin Ratio Triglycerides Procalcitonin Urine Occult Blood Meds: Medications Acetaminophen (Acetaminophen 325 Mg Tablet) 650 mg PO Q6HP PRN; Protocol PRN Reason: Per Pain Protocol/Fever > 101 Dexamethasone (Dexamethasone 10 Mg/Ml Vial) 6 mg IV DAILY [facility] Stop: 04/09/21 08:59 Last Admin: 03/31/21 08:26 Dose: 6 mg Documented by: Enoxaparin Sodium (Enoxaparin 100 Mg/Ml Syringe) 100 mg SQ DAILY [facility] Lactulose (Lactulose 20 Gm/30 Ml Oral.Keesha) 10 gm PO DAILYP PRN PRN Reason: Constipation Ondansetron HCl (Ondansetron 4 Mg/2 Ml Vial) 4 mg IV Q4HP PRN; Protocol PRN Reason: Nausea And Vomiting Senna (Sennosides 1 Tablet) 2 tab PO HSP PRN PRN Reason: Constipation Sodium Chloride (0.9 % Sodium Chloride 10 Ml Syringe) 10 ml IV Q8 [facility] Last Admin: 03/31/21 14:52 Dose: 10 ml Documented by: A/P Narrative A/P Narrative: Assessment: 65 year old obese male admitted for acute hypoxic respiratory failure secondary to ARDS due to COVID-19 pneumonia. The patient reports being diagnosed with COVID a few days after [place], he began to develop respiratory symptoms in early March. The patient has not been vaccinated for COVID. #Acute hypoxic respiratory failure #Severe COVID pneumonia/ARDS #Pulmonary embolism #Hyponatremia #Thrombocytosis #Normocytic anemia #Mildly elevated LFTs likely secondary to COVID illness #Obesity BMI 31 Plan -Dexamethasone 6 mg IV daily for severe COVID. -Unlikely to benefit from Remdesivir at this phase in COVID illness. -Oxygen supplementation. -Therapeutic Lovenox SQ BID, transition to DOAC before discharge. -Daily CBC, CMP, CRP. -Regular diet. -DVT prophylaxis: Lovenox SQ -Code status: Full -Disposition: Home when stable. Time Spent With Patient Time: Total time spent is greater than 50% in coordination of care (as documented) at patient's floor/unit and/or counseling patient: QUALITY VTE Deep Vein Thrombosis/Pulmonary Embolism Present on Admission: No
[2021-03-31] MEDS: diphenhydrAMINE 25 MG CAPSULE PO PRN (20:46)
[2021-03-31] MEDS: MELATONIN 3 MG TABLET PO PRN (20:49)
[2021-03-31] MEDS ORDERED: diphenhydrAMINE 25 MG CAPSULE ONE (20:50)
[2021-03-31] MEDS ORDERED: MELATONIN 3 MG TABLET PO ONE (20:54)
[2021-04-01] MEDS: 0.9 % SODIUM CHLORIDE 10 ML SYRINGE IV SCH ×4 (05:37→20:44)
[2021-04-01 06:28] LABS: Hematocrit 31.3 % (40.1-51.0); Hemoglobin 10.5 g/dL (13.7-17.5); Mean Corpuscular HGB Conc 33.5 g/dL (31.0-36.0); Mean Platelet Volume 9.2 fL (7.4-10.4); Platelet Count 634 K/mcL (140-440); RBC 3.33 M/mcL (4.63-6.08); Red Cell Distribution Width 11.9 % (11.5-14.5); WBC 9.6 K/mcL (4.5-11.0)
[2021-04-01 07:00] LABS: Band Neutrophils % 2 % (0-10); Lymphocytes % 21 % (15-49); Monocytes % (Manual) 12 % (1-12); Platelet Estimate INCREASED (Normal); RBC Morphology NORMAL (Normal); Segmented Neutrophils % 65 % (38-78)
[2021-04-01 07:18] LABS: ALT/SGPT 141 U/L (<40); AST/SGOT 64 U/L (<40); Albumin 2.9 gm/dL (3.2-5.2); Albumin/Globulin Ratio 0.9 (1.0-2.3); Alkaline Phosphatase 117 U/L (39-117); Bilirubin,Direct < 0.2 mg/dL (0-0.3); Bilirubin,Total 0.5 mg/dL (0.1-1.0); Blood Urea Nitrogen 14 mg/dL (8-23); Calcium 8.4 mg/dL (8.6-10.4); Carbon Dioxide 24 mmol/L (22-30); Chloride 104 mmol/L (96-108); Globulin 3.2 gm/dL (2.2-3.7); Glomerular Filtration Rate 107; Glucose 111 mg/dL (70-105); Lactate Dehydrogenase 289 U/L (135-225); Phosphorous 4.8 mg/dL (2.5-4.5); Triglycerides 175 mg/dL (<150); Uric Acid 4.3 mg/dL (2.5-8.0)
[2021-04-01] MEDS ORDERED: ENOXAPARIN 100 MG/ML SYRINGE SQ SCH ×2 (09:00→21:00)
[2021-04-01] MEDS: DEXAMETHASONE 10 MG/ML VIAL IV SCH (09:09)
--- NOTE | 2021-04-01 16:11 | Internal Med Progress Note ---
SUBJECTIVE Subjective Patient information: Note initiated : 04/01/21 at 4:08 pm Service Date, if different from initiated Date: [] Patient: Edward Holt 65 y/o M admitted on 03/30/21 for COVID+, SOB. Chief Complaint: [] Interval history: Edward Holt is a 65-year-old male with obesity, BMI 31, who was diagnosed with COVID-19 on about 03/16/2021 who presents to the emergency department with a chief complaint of shortness of breath. The patient presented to the emergency department on dyspnea, found to be hypoxic and discharged to home on supplemental oxygen. His symptoms worsened and he presented to the emergency department where he was found to be hypoxic and initially placed on BiPAP then transition to heated and humidified high flow nasal cannula oxygen. Transfer to a higher level of care for severe hypoxic respiratory failure secondary to COVID was attempted. A bed was found in [facility] however the patient refused transfer. Hospital medicine was asked to admit the patient in light of difficulty transferring the patient to higher level of care. Work-up in the ED included CBC, complete metabolic panel, this shows a normocytic anemia with a hemoglobin of 12.5, platelet of 447, sodium 132, mildly elevated LFTs. The patient a procalcitonin level of 0.14. Chest x-ray showed diffuse bilateral alveolar infiltrates throughout both lung fernandez considerably more pronounced since the last chest x-ray on 03/24/2021. In the ED, the patient received dexamethasone 6 mg p.o., a dose of ceftriaxone and azithromycin. 03/31 Elevated d-dimer, CTA chest showed bilateral pulmonary embolic. Started therapeutic lovenox BID. Improving oxygen requirement. 04/01 Improving oxygen requirement, down trending CRP, transferred to med/surg. Continues on therapeutic Lovenox while DOAC insurance coverage is being evaluat ed for outpatient treatment. Physical exam Head: Atraumatic, normal inspection. Eyes: normal appearance, no scleral icterus. Neck: full ROM Respiratory: nasal canula oxygen, no respiratory distress. Cardiovascular: normal rate and rhythm, S1, S2. GI/Abdominal: Obesely distended, soft, nontender, no guarding. Extremities: full range of motion, nontender. Neurological: CN II-XII intact, intact motor, intact sensation. Psychiatric: normal mood. Skin: warm, normal color Constitutional Vitals: Vital Signs Temp Pulse Resp BP Pulse Ox 98.7 F 101 H 31 H 118/88 90 04/01/21 12:00 04/01/21 12:17 04/01/21 12:17 04/01/21 12:00 04/01/21 14:00 Period Temp Pulse Resp BP Sys/Francis Pulse Ox Last 24 Hr 97.8 F-98.7 F 57-101 16-31 101-140/73-93 89-100 Intake and Output 04/01/21 04/01/21 04/01/21 05:59 13:59 21:59 Intake Total 400 Output Total 350 Balance 50 Intake & Output: Intake & Output 04/01/21 04/01/21 04/01/21 05:59 13:59 21:59 Intake Total 400 Output Total 350 Balance 50 Intake: Oral 400 Output: Void Amount 350 Other: Urine Appearance Clear Urine Color Light Gayathri Urine Odor Normal OBJ DATA Labs CBC & Chem 7: 04/01/21 14:15 04/01/21 05:41 Labs: Abnormal Lab Results 04/01/21 04/01/21 04/01/21 14:15 05:43 05:43 RBC 3.33 L Hgb 11.7 L 10.5 L Hct 31.3 L POC Hct Plt Count 634 H Lymph % (Auto) Lymph # (Auto) Mcdowell # (Auto) Lymphocytes % Reactive Lymphocytes Platelet Estimate Increased A PT INR D-Dimer POC Sodium Sodium Creatinine Glucose POC Glucose Calcium POC WB Ioniz Calcium Phosphorus Magnesium Direct Bilirubin GGT AST ALT Alkaline Phosphatase Lactate Dehydrogenase C-Reactive Protein 3.80 H Albumin Globulin Albumin/Globulin Ratio Triglycerides Procalcitonin Urine Occult Blood 04/01/21 03/31/21 03/31/21 05:41 05:40 05:38 RBC 3.46 L Hgb 10.9 L Hct 31.9 L POC Hct Plt Count 527 H Lymph % (Auto) Lymph # (Auto) Mcdowell # (Auto) Lymphocytes % 6 L Reactive Lymphocytes 3 H Platelet Estimate Increased A PT INR D-Dimer POC Sodium Sodium Creatinine 0.6 L 0.5 L Glucose 111 H 133 H POC Glucose Calcium 8.4 L 8.2 L POC WB Ioniz Calcium Phosphorus 4.8 H Magnesium 2.7 H 2.7 H Direct Bilirubin GGT 191 H 207 H AST 64 H 81 H ALT 141 H 150 H Alkaline Phosphatase 133 H Lactate Dehydrogenase 289 H 376 H C-Reactive Protein Albumin 2.9 L 3.0 L Globulin Albumin/Globulin Ratio 0.9 L 0.9 L Triglycerides 175 H Procalcitonin Urine Occult Blood 03/30/21 03/30/21 03/30/21 19:38 19:38 17:02 RBC Hgb Hct POC Hct Plt Count Lymph % (Auto) Lymph # (Auto) Mcdowell # (Auto) Lymphocytes % Reactive Lymphocytes Platelet Estimate PT INR D-Dimer > 20.0 H POC Sodium Sodium 132 L Creatinine Glucose 216 H POC Glucose Calcium 8.4 L POC WB Ioniz Calcium Phosphorus 1.6 L Magnesium 2.7 H Direct Bilirubin GGT 214 H AST 112 H ALT 159 H Alkaline Phosphatase 143 H Lactate Dehydrogenase 404 H C-Reactive Protein 13.80 H Albumin 3.1 L Globulin 4.2 H Albumin/Globulin Ratio 0.7 L Triglycerides 168 H Procalcitonin Urine Occult Blood Trace-intact A 03/29/21 03/29/21 03/29/21 20:43 20:43 20:43 RBC Hgb Hct POC Hct 36 L Plt Count Lymph % (Auto) Lymph # (Auto) Mcdowell # (Auto) Lymphocytes % Reactive Lymphocytes Platelet Estimate PT 16.0 H INR 1.2 H D-Dimer POC Sodium 132 L Sodium Creatinine Glucose POC Glucose 135 H Calcium POC WB Ioniz Calcium 1.05 L Phosphorus Magnesium 2.6 H Direct Bilirubin 0.3 H GGT AST 72 H ALT 131 H Alkaline Phosphatase 126 H Lactate Dehydrogenase C-Reactive Protein Albumin 3.0 L Globulin 4.6 H Albumin/Globulin Ratio Triglycerides Procalcitonin 0.14 H Urine Occult Blood 03/29/21 20:43 RBC 3.94 L Hgb 12.5 L Hct 36.1 L POC Hct Plt Count 447 H Lymph % (Auto) 10.4 L Lymph # (Auto) 1.01 L Mcdowell # (Auto) 1.11 H Lymphocytes % Reactive Lymphocytes Platelet Estimate PT INR D-Dimer POC Sodium Sodium Creatinine Glucose POC Glucose Calcium POC WB Ioniz Calcium Phosphorus Magnesium Direct Bilirubin GGT AST ALT Alkaline Phosphatase Lactate Dehydrogenase C-Reactive Protein Albumin Globulin Albumin/Globulin Ratio Triglycerides Procalcitonin Urine Occult Blood Meds: Medications Acetaminophen (Acetaminophen 325 Mg Tablet) 650 mg PO Q6HP PRN; Protocol PRN Reason: Per Pain Protocol/Fever > 101 Dexamethasone (Dexamethasone 10 Mg/Ml Vial) 6 mg IV DAILY [facility] Stop: 04/09/21 08:59 Last Admin: 04/01/21 09:09 Dose: 6 mg Documented by: Diphenhydramine HCl (Diphenhydramine 25 Mg Capsule) 25 mg PO HSP PRN PRN Reason: Insomnia Last Admin: 03/31/21 20:46 Dose: 25 mg Documented by: Enoxaparin Sodium (Enoxaparin 100 Mg/Ml Syringe) 100 mg SQ BID [facility] Lactulose (Lactulose 20 Gm/30 Ml Oral.Keesha) 10 gm PO DAILYP PRN PRN Reason: Constipation Melatonin (Melatonin 3 Mg Tablet) 6 mg PO HSP PRN PRN Reason: Sleep Last Admin: 03/31/21 20:49 Dose: 6 mg Documented by: Ondansetron HCl (Ondansetron 4 Mg/2 Ml Vial) 4 mg IV Q4HP PRN; Protocol PRN Reason: Nausea And Vomiting Senna (Sennosides 1 Tablet) 2 tab PO HSP PRN PRN Reason: Constipation Sodium Chloride (0.9 % Sodium Chloride 10 Ml Syringe) 10 ml IV Q8 [facility] Last Admin: 04/01/21 05:37 Dose: 10 ml Documented by: A/P Narrative A/P Narrative: Assessment: 65 year old obese male admitted for acute hypoxic respiratory failure secondary to ARDS due to COVID-19 pneumonia. The patient reports being diagnosed with COVID a few days after [place], he began to develop respiratory symptoms in early March. The patient has not been vaccinated for COVID. #Acute hypoxic respiratory failure #Severe COVID pneumonia #Pulmonary embolism #Normocytic anemia #Thrombocytosis #Normocytic anemia #Mildly elevated LFTs likely secondary to COVID illness #Obesity BMI 31 Plan -Dexamethasone 6 mg IV daily for severe COVID. -Deferred Remdesivir due to late presentation for COVID illness. -Oxygen supplementation, wean as able. -Therapeutic Lovenox SQ BID, transition to DOAC before discharge. -Daily CBC, CMP, CRP. -Regular diet. -DVT prophylaxis: Lovenox SQ -Code status: Full -Disposition: Home when stable. Time Spent With Patient Time: Total time spent is greater than 50% in coordination of care (as documented) at patient's floor/unit and/or counseling patient: QUALITY VTE Deep Vein Thrombosis/Pulmonary Embolism Present on Admission: No
[2021-04-01] MEDS: MELATONIN 3 MG TABLET PO PRN (20:55)
[2021-04-01] MEDS: diphenhydrAMINE 25 MG CAPSULE PO PRN (20:56)
[2021-04-02] MEDS: 0.9 % SODIUM CHLORIDE 10 ML SYRINGE IV SCH (04:40)
[2021-04-02 06:41] LABS: Hematocrit 31.6 % (40.1-51.0); Hemoglobin 10.7 g/dL (13.7-17.5); Mean Cell Volume 95.5 fL (80.0-100.0); Mean Corpuscular HGB Conc 33.9 g/dL (31.0-36.0); Mean Platelet Volume 9.3 fL (7.4-10.4); Platelet Count 654 K/mcL (140-440); RBC 3.31 M/mcL (4.63-6.08); WBC 8.6 K/mcL (4.5-11.0)
[2021-04-02 07:03] LABS: ALT/SGPT 311 U/L (<40); AST/SGOT 180 U/L (<40); Albumin 2.9 gm/dL (3.2-5.2); Albumin/Globulin Ratio 0.9 (1.0-2.3); Alkaline Phosphatase 138 U/L (39-117); Bilirubin,Direct < 0.2 mg/dL (0-0.3); Bilirubin,Total 0.4 mg/dL (0.1-1.0); Blood Urea Nitrogen 13 mg/dL (8-23); Calcium 8.2 mg/dL (8.6-10.4); Carbon Dioxide 25 mmol/L (22-30); Chloride 101 mmol/L (96-108); Globulin 3.1 gm/dL (2.2-3.7); Glomerular Filtration Rate 107; Glucose 92 mg/dL (70-105); Lactate Dehydrogenase 340 U/L (135-225); Triglycerides 222 mg/dL (<150); Uric Acid 3.9 mg/dL (2.5-8.0)
[2021-04-02] MEDS ORDERED: RIVAROXABAN 15 MG TABLET PO SCH (08:00)
[2021-04-02] MEDS: DEXAMETHASONE 10 MG/ML VIAL IV SCH (08:04)
--- NOTE | 2021-04-02 09:29 | Discharge Summary ---
Discharge Provider Provider Patient information: Note initiated : 04/02/21 at 9:26 am Service Date, if different from initiated Date: [] Patient: Edward Holt 65 y/o M admitted on 03/30/21 for COVID+, SOB. Chief Complaint: [] Date of admission: 03/30/21 18:56 Discharge date: 04/02/21 Primary care physician: Taylor Aquino Consults: 03/29/21 Consult to Physician [CONS] Stat Comment: Consulting Provider: Glenn Rudd Reason For Exam: Physician to Consult 03/30/21 14:56 Consult to Physician [CONS] Stat Comment: Consulting Provider: Glenn Rudd Reason For Exam: Physician to Consult Discharge Meds Discharge Medications Home Medications albuterol 90 mcg/actuation aerosol inhaler 1 - 2 mcg INHALATION Q4HP PRN 03/30/21 [History Confirmed 03/30/21 Last Taken 03/29/21 08:00] atorvastatin 40 mg tablet 40 mg PO QHS 03/30/21 [History Confirmed 03/30/21 Last Taken 03/26/21 21:00] dexamethasone 6 mg tablet 6 mg PO QDAY #6 tab 04/02/21 [Rx Last Taken Unknown] rivaroxaban 15 mg (42)-20 mg (9) tablets in a starter pack (Xarelto DVT-PE Treat 30d Start) See Rx Instructions .ROUTE .COMPLEX #51 tab 04/02/21 [Rx Last Taken Unknown] rivaroxaban 20 mg tablet (Xarelto) 20 mg PO QDAY #60 tab 04/02/21 [Rx Last Taken Unknown] COURSE Hospital Course Hospital course: Edward Holt is a 65-year-old male with obesity, BMI 31, who was diagnosed with COVID-19 on about 03/16/2021 who presents to the emergency department with a chief complaint of shortness of breath. The patient presented to the emergency department on dyspnea, found to be hypoxic and discharged to home on supplemental oxygen. His symptoms worsened and he presented to the emergency department where he was found to be hypoxic and initially placed on BiPAP then transition to heated and humidified high flow nasal cannula oxygen. Transfer to a higher level of care for severe hypoxic respiratory failure secondary to COVID was attempted. A bed was found in [facility] however the patient refused transfer. Hospital medicine was asked to admit the patient in light of difficulty transferring the patient to higher level of care. Work-up in the ED included CBC, complete metabolic panel, this shows a normocytic anemia with a hemoglobin of 12.5, platelet of 447, sodium 132, mildly elevated LFTs. The patient a procalcitonin level of 0.14. Chest x-ray showed diffuse bilateral alveolar infiltrates throughout both lung fernandez considerably more pronounced since the last chest x-ray on 03/24/2021. In the ED, the patient received dexamet hasone 6 mg p.o., a dose of ceftriaxone and azithromycin. 03/31 Elevated d-dimer, CTA chest showed bilateral pulmonary embolic. Started therapeutic lovenox BID. Improving oxygen requirement. 04/01 Improving oxygen requirement, down trending CRP, transferred to med/surg. Continues on therapeutic Lovenox while DOAC insurance coverage is being evaluated for outpatient treatment. 04/02 Discharged to home on Xarelto for pulmonary embolism and 6 more days of Dexamethasone for severe COVID pneumonia. Plan is to anticoagulate for a total of 3 months for provoked pulmonary embolism due to COVID. Home oxygen per home oxygen evaluation recommendations. Physical exam Head: Atraumatic, normal inspection. Eyes: normal appearance, no scleral icterus. Neck: full ROM Respiratory: nasal canula oxygen, no respiratory distress. Cardiovascular: normal rate and rhythm, S1, S2. GI/Abdominal: Obesely distended, soft, nontender, no guarding. Extremities: full range of motion, nontender. Neurological: CN II-XII intact, intact motor, intact sensation. Psychiatric: normal mood. Skin: warm, normal color Discharge diagnosis: Severe COVID pneumonia Time Spent with Patient Time attestation: Total time spent providing and/or coordinating discharge services: EXAM Constitutional Vitals: Temp Pulse Resp BP Pulse Ox 98.1 F 60 18 147/92 94 04/02/21 05:00 04/02/21 05:00 04/02/21 05:00 04/02/21 05:00 04/02/21 05:00 Discharge Data Data Completed and Pending Labs on day of discharge: Labs from last 24 hours 04/02/21 04/02/21 04/01/21 05:20 05:20 14:15 WBC 8.6 RBC 3.31 L Hgb 10.7 L 11.7 L Hct 31.6 L MCV 95.5 MCH 32.3 MCHC 33.9 RDW 12.0 Plt Count 654 H MPV 9.3 Platelet Estimate Pending RBC Morphology Pending Sodium 138 Potassium 4.9 Chloride 101 Carbon Dioxide 25 Anion Gap 12.0 BUN 13 Creatinine 0.6 L GFR Calculation 107 Glucose 92 Uric Acid 3.9 Calcium 8.2 L Phosphorus 4.0 Magnesium 2.4 Total Bilirubin 0.4 Direct Bilirubin < 0.2 GGT 251 H AST 180 H ALT 311 H Alkaline Phosphatase 138 H Lactate Dehydrogenase 340 H C-Reactive Protein Total Protein 6.0 Albumin 2.9 L Globulin 3.1 Albumin/Globulin Ratio 0.9 L Triglycerides 222 H 04/01/21 04/01/21 05:43 05:43 WBC RBC Hgb TNP Hct MCV MCH MCHC RDW Plt Count MPV Platelet Estimate RBC Morphology Sodium Potassium Chloride Carbon Dioxide Anion Gap BUN Creatinine GFR Calculation Glucose Uric Acid Calcium Phosphorus Magnesium Total Bilirubin Direct Bilirubin GGT AST ALT Alkaline Phosphatase Lactate Dehydrogenase C-Reactive Protein 3.80 H Total Protein Albumin Globulin Albumin/Globulin Ratio Triglycerides Preliminary micro results at discharge 03/29/21 20:52 Blood Culture - Preliminary Blood 03/29/21 20:43 Blood Culture - Preliminary Blood Discharge Plan Patient/Caregiver Discharge Instructions Activity: increase activity as tolerated and as instructed Diet: Regular Diet Prescriptions: New Xarelto DVT-PE Treat 30d Start 15 mg (42)- 20 mg (9) tablets,dose pack See Rx Instructions .ROUTE .COMPLEX Qty: 51 0RF Rx Instructions: Take one-15 mg tablet twice daily for 21 days, then one-20 mg tablet once daily; must take with meal/food Xarelto 20 mg tablet 20 mg PO QDAY Qty: 60 0RF Rx Instructions: Take Xarelto 15 mg twice a day for 21 days then transition to Xarelto 20 mg one a day to complete 90 days of treatment. Administer with evening meal. dexamethasone 6 mg tablet 6 mg PO QDAY Qty: 6 0RF Continued albuterol 90 mcg/actuation Aerosol 1 - 2 mcg INHALATION Q4HP PRN (Reason: Shortness Of Breath) 0RF atorvastatin 40 mg Tablet 40 mg PO QHS 0RF Follow Up Plan Follow up with: Taylor Aquino MD [Primary Care Provider] - Patient Disposition: Home, Self-Care Prognosis: Serious Rehab Potential: Fair Overall status at discharge: patient is progressing back to baseline Discharge Orders: Discharge Order (Routine); Ordered 04/02/21 Ordered By: Glenn CARRASQUILLO VTE Deep Vein Thrombosis/Pulmonary Embolism Present on Admission: No
[2021-04-02 10:20] LABS: Lymphocytes % 24 % (15-49); Monocytes % (Manual) 18 % (1-12); Platelet Estimate INCREASED (Normal); RBC Morphology NORMAL (Normal); Reactive Lymphocytes 2 % (0-2); Segmented Neutrophils % 56 % (38-78)
== END 2021-04-02 13:30 | disposition home or self-care (01) | DRG 177 ==
LOC: ED 20:30 → ICU 03-30 18:56 → MEDSUR 04-01 13:44
PROVIDERS: ADMIT Internal Medicine; ATTEND Internal Medicine